=== PATIENT | female | born 1995 | race Caucasian/White ===

== ENCOUNTER → 2016-10-18 | Day surgery (SDC) | payer BC ==
--- NOTE | 2016-10-17 01:09 | Pre-op HX & Phy Repo 2 SIG ---
DATE OF ADMISSION: 10/18/2016 HISTORY OF PRESENT ILLNESS: This is a 21-year-old white female 0 para 0 with a chief complaint of persistent low abdominal pain. Pain has been getting worse during the menstrual periods, and cramps are so severe that the patient used to take constantly pain medication starting from nonsteroidals going down through codeine #3, Percocet. The pain is getting worse through several years. Sexual life practically impossible due to severe cramps and pain during the intercourse. She also complains of severe vaginal bleeding on menstrual period. Her menstrual period is regular, every 28 to 30 days for five to six days. Her Pap smear is Class 1. She denies pelvic inflammatory disease. She denies sexually transmitted diseases. PAST MEDICAL HISTORY: She denies medical problems. She denies heart disease, lung disease, liver disease. Hospitalizations, none. SOCIAL HISTORY: Tobacco: Does not smoke. Alcohol: Does not drink. 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 ALLERGIES: None. REVIEW OF SYSTEMS: Otherwise noncontributory. PHYSICAL EXAMINATION: GENERAL: The patient is well developed and well nourished white female, 21 years old. VITAL SIGNS: Stable. SKIN: No lesions. Normal color. HEENT: Head, normocephalic and atraumatic. Eyes, pupils are reactive to light and accommodation. Ears, tympanic membranes intact. Mouth, clean. Good hygiene. NECK: Supple with no thyromegaly without lymphadenopathy. BREASTS: No masses. Nipples without discharge. LUNGS: Clear to percussion and auscultation. HEART: Rate and rhythm regular. No murmur. ABDOMEN: Soft and nontender. Costovertebral angles nontender. Bowel sounds clear, normal. PELVIC: Bartholin urethral [place] glands within normal limits. Vagina, no lesions. Cervix closed. Uterus normal size, shape, position. Adnexa, no masses. LABORATORY AND DIAGNOSTIC DATA: Ultrasound on 09/12/2016 revealed presence of right ovarian cyst of 2.4 cm, possible follicles. Otherwise, no abnormal findings. WBC 5.8, RBC 4.2, hemoglobin 12.9, hematocrit 37.7, blood type is A positive. Test for is negative. Her INR is 0.98, PTT 28 and PT 10.6. Blood sugar and electrolytes are within normal limits. IMPRESSION: 1. Severe dysmenorrhea. 2. Severe dyspareunia. 3. Lower abdominal pain. 4. Possible endometriosis. PLAN: Hysteroscopy, fluoroscopy. Edna Shin M.D. DR: FRANCESCO JOB#: [id number] CC:
[~2016-10-18] VITALS: Ht 170.2 cm; Wt 71.2 kg
[2016-10-18] VITALS (16 sets, daily range): BP systolic 99–133; BP diastolic 51–84
[~2016-10-18] MED LIST: Dexamethasone 4mg/ml vial ONE; Glycopyrrolate 0.2mg/ml 1ml Vial ONE; Ketorolac 30mg Inj ONE; Ketorolac 60mg Inj IM ONE; LOESTRIN1 EAC1 PO; LORazepam Inj 2mg/ml 1ml IV PRN; LR 1000ml 1,000 ML IVLG SCH; LR 1000ml ONE; Metoclopramide 10mg/2ml Inj ONE; Midazolam 2mg/2ml Inj ONE; NS 275ml ONE; NS 55ml IV ONE; NS Irrig 1000ml IRRIG ONE; Neostigmine 1mg/ml 10ml Inj ONE; PETADOLEX50 MG PO; PROZAC40 MG ORAL; Propofol 10mg/ml 20ml IV ONE; ProvayBlue 5mg/ml 10ml amp INJ ONE; Ropivacaine 5mg/ml Vial 20ml INJ ONE; Sterile Water Irrig 1000ml IRRIG ONE; VITAMIN B-2100 MG PO; Zemuron 50mg/5ml Inj IV ONE; cefOXitin 2gm Inj ONE; cefOXitin Sod 2 GM in D5W 110 ML IVPB ONE; fentaNYL 100 mcg/2 mL IV ONE
--- NOTE | 2016-10-18 07:43 | Pre-Procedure Note/Attestation ---
Pre-Procedure Note/Attestation Complete Prior to Procedure Planned Procedure: not applicable Procedure Narrative: Video laser laparoscopy, video hysteroscopy Indications for Procedure Pre-Operative Diagnosis: Severe pelvic pain, dyspareunia Attestation I attest that I discussed the nature of the procedure; its benefits; risks and complications; and alternatives (and the risks and benefits of such alternatives ), prior to the procedure, with the patient (or the patient's legal sales representative education courses). I attest that, if there was a reasonable possibility of needing a blood transfusion, the patient (or the patient's legal sales representative education courses) was given the [facility] standardized written summary, pursuant to the Luis Antonio Adriana Blood Safety Act ([place] Health and Safety Code # 1645, as amended). I attest that I re-evaluated the patient just prior to the surgery and that there has been no change in the patient's H&P, except as documented below:NONE DEMARCUS QUEEN Oct 18, 2016 07:43
--- NOTE | 2016-10-18 08:14 | Immediate Post-Op Evaluation ---
Immediate Post-Op Evalulation Immediate Post-Op Evalulation Procedure: pelviscopy Date of Evaluation: Oct 18, 2016 Time of Evaluation: 09:35 Blood Products: 1100 ml LR Estimated Blood Loss: 5-10 ml Urinary Output: 250 ml Blood Pressure Systolic: 130 Blood Pressure Diastolic: 82 Pulse Rate: 91 Respiratory Rate: 16 O2 Sat by Pulse Oximetry: 100 Temperature (Fahrenheit): 97.1 Pain Score (1-10): 3 Nausea: No Vomiting: No Complications none Patient Status: reacts, patent, none Hydration Status: adequate Drug: Cefoxitin 1 G Given Within 1 Hr of Incision: Yes Time Given: 07:49 NANCI LAWTON M.D. Oct 18, 2016 08:14
--- NOTE | 2016-10-18 08:17 | 48 Hour Post Anesthesia Eval ---
Post Anesthesia Evaluation Procedure: pelviscopy Date of Evaluation: Oct 18, 2016 Time of Evaluation: 10:30 Blood Pressure Systolic: 129 0: 74 Pulse Rate: 82 Respiratory Rate: 14 Temperature (Fahrenheit): 97.1 O2 Sat by Pulse Oximetry: 100 Airway: patent Nausea: No Vomiting: No Pain Intensity: 3 Hydration Status: adequate Cardiopulmonary Status: Stable Mental Status/LOC: other - drowsy, responds to verbal Post-Anesthesia Complications: none Follow-up care needed: patient intructions given NANCI LAWTON M.D. Oct 18, 2016 08:17
--- NOTE | 2016-10-18 08:22 | Anethesia Preoperative Eval ---
Anesthesia Pre-op PMH/ROS General Date of Evaluation: Oct 18, 2016 Time of Evaluation: 07:20 Anesthesiologist: Paddy ASA Score: ASA 1 Mallampati Score Class I : Soft palate, uvula, fauces, pillars visible Class II: Soft palate, uvula, fauces visible Class III: Soft palate, base of uvula visible Class IV: Only hard plate visible Mallampati Classification: Class I Surgeon: María Shin Diagnosis: Endometriosis Surgical Procedure: Pelviscopy, Hysteroscopy, D & C, CO2 laser of endometriosis Anesthesia History: PONV - Pt has been told she has very high tolerance for anesthesia Family History: no anesthesia problems Allergies: Coded Allergies: No Known Allergies (Unverified , 10/16/16) Medications: see eMAR Past Medical History Neurologic/Psychiatric: Reports: depression/anxiety PMH Narrative: healthy PSxH Narrative: tonsillectomy, BAM Anesthesia Pre-op Phys. Exam Physician Exam Last Vital Signs Date Time Temp Pulse Resp B/P Pulse Ox O2 Delivery O2 Flow Rate FiO2 10/18/16 06:55 98.1 79 20 132/78 100 Room Air Constitutional: NAD Neurologic: CN 2-12 intact Cardiovascular: RRR Respiratory: CTA Gastrointestinal: other - deferred Airway Exam Mallampati Score: Class I MO: full ROM: full Anesthesia Pre-op A/P Labs Urine Test Test 10/18/16 06:40 Urine HCG, Qualitative Negative Serum Test negative Risk Assessment & Plan Assessment: ASA I Plan: GETA Pre-Antibiotics Drug: Cefoxitin 1 G Given Within 1 Hr of Incision: Yes Time Given: 07:49 NANCI LAWTON M.D. Oct 18, 2016 08:22
--- NOTE | 2016-10-18 09:48 | Brief Operative Note ---
Immediate Post Operative Note Operative Note Chief Complaint: Pelvic Pain Pre-op Diagnosis: Severe pelvic pain, dyspareunia Procedure: Video Hysteroscopy, Video Laser Pelviscopy with enterolysis, with vaporization of endometriosis, with chromotubation Post-op Diagnosis: Pelvic endometriosis, bowel adhesions, appendiceal adhesions Post-op Diagnosis: same as pre-op plus - endometriosis, bowel adhesions, pelvic adhesions Surgeon: Demarcus Queen MD Plating Tank Operator: Ashley Titus Anesthesiologist: Paddy BALDERRAMA Anesthesia: general Specimen: none Complications: none Condition: stable Fluids: NS Estimated Blood Loss: minimal Drains: none Implant(s) used?: No DEMARCUS QUEEN Oct 18, 2016 09:48
[2016-10-18] MEDS: Hydromorphone 0.5mg/0.5ml inj IVP PRN ×3 (09:57→10:33)
--- NOTE | 2016-10-18 19:19 | Operative Note - Dictated ---
SURGEON: Jeet Shin M.D. PRINT FINISHING WORKER: Ashley Titus M.D. PREOPERATIVE DIAGNOSES: Severe pelvic pain, dyspareunia, and dysmenorrhea. PROCEDURE: Video hysteroscopy, video laser pelviscopy with enterolysis, video laser pelviscopy with vaporization of endometriosis and chromotubation. POSTOPERATIVE DIAGNOSIS: Severe pelvic pain, dyspareunia, dysmenorrhea plus pelvic endometriosis, bowel adhesions, and appendiceal adhesions. ANESTHESIA: General endotracheal. ANESTHESIOLOGIST: Joan Thomason M.D. ESTIMATED BLOOD LOSS: Minimal. PROCEDURE IN DETAIL: After all the appropriate consents were signed, the patient was brought to the operating room and placed on table supine position. General endotracheal anesthesia was induced without complication. The patient was then placed in the dorsal lithotomy position. Perineum, vagina, and abdomen prepped and draped in the usual fashion for the procedure. The patient was examined under anesthesia. The uterus appeared to be anterior flexed with no pelvic masses palpated and the uterus was mobile. The procedure then continued with the hysteroscopy where the cervix was dilated and video hysteroscope was introduced. Hysteroscopy revealed a totally normal uterine cavity. Both tubal ostia were visualized and photographed. The procedure then continued with placement of uterine manipulator. The abdominal portion of the procedure then began where an umbilical incision was made. Veress needle was introduced and the abdomen was insufflated to 15 mmHg. A 11 mm trocar was placed in the umbilicus and the two 5 mm trocars were placed in the lower abdomen on the left and midline of the patient. The procedure continued with visualizing of the pelvis. There appeared to be three distinct endometriosis lesions, one on the left pelvic sidewall just above the pelvic brim and the other two were in the posterior cul-de-sac overlying the colon area. The procedure then continued with evaluation of both the ovaries, they were within normal limits and no endometriosis or cystic areas were identified. The area of the appendix was also visualized and there appeared to be adhesions along the abdominal sidewall to the appendix. The appendix was actually kinked in one area due to the adhesions. Also on the left side, the loops of bowel were seen adhesed to the pelvic sidewall. At this time, the procedure continued with placing vasopressin solution in the area of the left pelvic sidewall lesion. The area was hydrodissected and the lesion was fully vaporized. The other two lesions in the posterior cul-de-sac were also hydrodissected with vasopressin and thoroughly vaporized ascertaining that no areas of endometriosis were left over. Clean tissue was visible underneath the endometriosis lesions. At this time, the left pelvic sidewall was also now visualized with enterolysis undertaken using CO2 laser in traction countertraction technique. Once this was completed, the procedure continued with thorough enterolysis of the appendiceal adhesions which extended to the cecum. These adhesions were lysed with appendix straightening out and the cecum adhesions also lysed and the cecum dropping away from the pelvic sidewall. At this time, the pelvis was once again visualized. There did not appear to be any other lesions of endometriosis or adhesions. Upper abdomen was also visualized and was found to be within normal limits. No adhesions to the liver. At this time, the instruments were removed one after the another under direct visualization with the laparoscope. Puncture sites were fully hemostatic. The primary trocar was removed last with the laparoscope removed after primary trocar. The puncture site was fully hemostatic. At this time, the incisions were closed using 0 Vicryl suture at the fascial layer and 4-0 Monocryl suture at the skin layer. Incisions were covered with Steri-Strips and benzoin. The patient was placed in the supine position, awakened from general anesthesia, and brought to the recovery room in excellent condition. She tolerated the procedure very well. Jeet Shin M.D. DR: THOMAS JOB#: [id number] CC:
== END | disposition home or self-care (01) ==
LOC: SUR 06:20
DX: N80.3 Endometriosis of pelvic peritoneum (principal); K66.0 Peritoneal adhesions (postprocedural) (postinfection); K38.8 Other specified diseases of appendix; N94.6 Dysmenorrhea, unspecified; N94.10 Unspecified dyspareunia
CPT/HCPCS: 58555; 58662; 81025; J0694; J1100; J1170; J1885; J2250; J2405; J2704; J2710; J2765; J2795; J3010; J7050; J7120; Q9968; 94003; 94150

== ENCOUNTER 2017-11-20 06:26 | Observation (INO) | payer BC ==
--- NOTE | 2017-11-13 21:45 | History and Physical Report ---
DATE OF ADMISSION: 11/20/2017 HISTORY OF PRESENT ILLNESS: This is a 22-year-old female, 0, para 0, who presented to our office with a chief complaint of severe menstrual cramps, lower abdominal pain, and dysmenorrhea. Due to such problem, the patient was debilitated and she underwent laparoscopy one year ago. At that time, she was diagnosed with endometriosis was confirmed and she was placed on control pills, low estrogen for a year. However, now problem re-appears again and necessitate taking pain medicine regular nonsteroidal anti-inflammatory does not help. She is sexually active and she is feeling relative discomfort on intercourse. She denies pelvic inflammatory disease. She denies sexually transmitted diseases. Pap smear is normal. PAST MEDICAL HISTORY: She denies medical problems. She denies heart disease, lung disease, or liver disease. SURGERIES: Laparoscopy in 2017 and breast implants in 2016. ALLERGIES: None. SOCIAL HISTORY: Tobacco, does not smoke. Alcohol, does not drink. REVIEW OF SYSTEMS: Noncontributory. PHYSICAL EXAMINATION: GENERAL: Reveals well-developed, well-nourished, white female, in no acute distress. VITAL SIGNS: Stable. SKIN: No lesions. Normal color. HEENT: Normocephalic and atraumatic. Eyes, pupils are reactive to light and accommodation. Ears, tympanic membranes intact. Nose, clear. Mouth, good hygiene. enlarged. NECK: Supple dwithout thyromegaly. No lymphadenopathy. BREASTS: No masses. Nipples without discharge. Implants present. LUNGS: Clear to percussion and auscultation. HEART: Rate and rhythm regular. S1 and S2. ABDOMEN: Soft and nontender. Bowel sounds present. Costovertebral angle nontender. EXTREMITIES: No edema. PELVIC: Limited to the kidney and bladder within normal limits. Normal vagina. No lesions. Cervix closed. Uterus, normal size. Adnexa, tenderness bilaterally. No masses appreciated. IMPRESSION: Dysmenorrhea, dyspareunia, persistent pelvic pain, and endometriosis. PLAN: Laparoscopy and possible D and C hysteroscopy.. Edna Shin M.D. DR: YAMILET JOB#: [id number] CC:
[~2017-11-20] VITALS: Ht 170.2 cm; Wt 71.2 kg
[2017-11-20] VITALS (18 sets, daily range): BP systolic 105–130; BP diastolic 52–77
[~2017-11-20 06:26] MED LIST changes: -Dexamethasone 4mg/ml vial ONE; -Glycopyrrolate 0.2mg/ml 1ml Vial ONE; -Ketorolac 30mg Inj ONE; -Ketorolac 60mg Inj IM ONE; -LORazepam Inj 2mg/ml 1ml IV PRN; -LR 1000ml 1,000 ML IVLG SCH; -LR 1000ml ONE; -Metoclopramide 10mg/2ml Inj ONE; -Midazolam 2mg/2ml Inj ONE; -NS 275ml ONE; -NS 55ml IV ONE; -NS Irrig 1000ml IRRIG ONE; -Neostigmine 1mg/ml 10ml Inj ONE; -Propofol 10mg/ml 20ml IV ONE; -ProvayBlue 5mg/ml 10ml amp INJ ONE; -Ropivacaine 5mg/ml Vial 20ml INJ ONE; -Sterile Water Irrig 1000ml IRRIG ONE; -Zemuron 50mg/5ml Inj IV ONE; -cefOXitin 2gm Inj ONE; -cefOXitin Sod 2 GM in D5W 110 ML IVPB ONE; -fentaNYL 100 mcg/2 mL IV ONE
[2017-11-20] MEDS ORDERED: VENLAFAXINE HCL25 MG ORAL (06:58)
[2017-11-20] MEDS ORDERED: Ropivacaine 5mg/ml Vial 30ml INJ ONE (06:59)
[2017-11-20] MEDS ORDERED: cefOXitin 2gm Inj IVP ONE (07:00)
[2017-11-20] MEDS ORDERED: cefOXitin 2gm in D5W 110ml IVPB ONE (07:00)
--- NOTE | 2017-11-20 07:21 | Anethesia Preoperative Eval ---
Anesthesia Pre-op PMH/ROS General Date of Evaluation: Nov 20, 2017 Anesthesiologist: Adria ASA Score: ASA 2 Mallampati Score Class I : Soft palate, uvula, fauces, pillars visible Class II: Soft palate, uvula, fauces visible Class III: Soft palate, base of uvula visible Class IV: Only hard plate visible Mallampati Classification: Class I Surgeon: Aleida Diagnosis: Enometriosis Surgical Procedure: Pelviscopy with laser, D&C hysteroscopy Anesthesia History: none Family History: no anesthesia problems Allergies: Coded Allergies: No Known Allergies (Unverified , 10/16/16) Medications: see eMAR Past Medical History Cardiovascular: Denies: HTN, CAD, VA, valve dz, arrhythmia, other Pulmonary: Denies: asthma, COPD, RAFIQ, other Gastrointestinal/Genitourinary: Reports: other - endometriosis; Denies: GERD, CRI, ESRD Neurologic/Psychiatric: Reports: depression/anxiety; Denies: dementia, CVA, TIA, other Endocrine: Denies: DM, hypothyroidism, steroids, other HEENT: Denies: cataract (L), cataract (R), glaucoma, [place]EL[place] (L), NELSON [place] (R), other Hematology/Immune: Denies: anemia, DVT, bleeding disorder, other Musculoskeletal/Integumentary: Denies: OA, RA, DJD, DDD, edema, other PSxH Narrative: T&A, breast aug Anesthesia Pre-op Phys. Exam Physician Exam Last Vital Signs Date Time Temp Pulse Resp B/P (MAP) Pulse Ox O2 Delivery O2 Flow Rate FiO2 11/20/17 06:56 98.4 88 20 118/77 100 Room Air 98.4 Constitutional: NAD Cardiovascular: RRR Respiratory: CTA Airway Exam Mallampati Score: Class I MO: full ROM: full Teeth: intact Anesthesia Pre-op A/P Labs see chart Urine Test Test 11/20/17 06:35 Urine HCG, Qualitative Negative (NEGATIVE) Studies Pre-op Studies: EKG - sr Risk Assessment & Plan Assessment: ASA II Plan: GA Status Change Before Surgery: No Pre-Antibiotics Drug: CEfoxitin 2g Given Within 1 Hr of Incision: Yes JESUS GARDNER M.D. Nov 20, 2017 07:21
[2017-11-20] MEDS ORDERED: cefOXitin 2gm Inj ONE ×2 (07:23→14:51)
--- NOTE | 2017-11-20 07:44 | Pre-Procedure Note/Attestation ---
Pre-Procedure Note/Attestation Complete Prior to Procedure Planned Procedure: not applicable Procedure Narrative: Video Laser Pelviscopy, Appendectomy, Video hysteroscopy, D&C Indications for Procedure Pre-Operative Diagnosis: Chronic Pelvic Pain Attestation I attest that I discussed the nature of the procedure; its benefits; risks and complications; and alternatives (and the risks and benefits of such alternatives ), prior to the procedure, with the patient (or the patient's legal fuels sales representative). I attest that, if there was a reasonable possibility of needing a blood transfusion, the patient (or the patient's legal fuels sales representative) was given the [place] [facility] standardized written summary, pursuant to the Luis Antonio Adriana Blood Safety Act ([place] Health and Safety Code # 1645, as amended). I attest that I re-evaluated the patient just prior to the surgery and that there has been no change in the patient's H&P, except as documented below:NONE DEMARCUS QUEEN Nov 20, 2017 07:44
[2017-11-20] MEDS ORDERED: ProvayBlue 5mg/ml 10ml amp INJ ONE (07:45)
[2017-11-20] MEDS ORDERED: LR 1000ml 1,000 ML IVLG SCH (08:10)
--- NOTE | 2017-11-20 08:13 | Immediate Post-Op Evaluation ---
Immediate Post-Op Evalulation Immediate Post-Op Evalulation Procedure: PElviscopy with CO2 laser, D&C hysteroscopy Date of Evaluation: Nov 20, 2017 Time of Evaluation: 09:42 IV Fluids: 1.4L Blood Products: 0 Estimated Blood Loss: 5 Urinary Output: 50 Blood Pressure Systolic: 105 Blood Pressure Diastolic: 52 Pulse Rate: 96 Respiratory Rate: 16 O2 Sat by Pulse Oximetry: 98 Temperature (Fahrenheit): 97.5 Pain Score (1-10): 0 Nausea: No Vomiting: No Complications 0 Patient Status: awake, reacts, patent, extubated, none Hydration Status: adequate Drug: Cefoxiti 2g Given Within 1 Hr of Incision: Yes Time Given: 07:45 JESUS GARDNER M.D. Nov 20, 2017 08:13
--- NOTE | 2017-11-20 08:14 | 48 Hour Post Anesthesia Eval ---
Post Anesthesia Evaluation Procedure: PElviscopy with CO2 laser, D&C hysteroscopy Date of Evaluation: Nov 20, 2017 Airway: patent Nausea: No Vomiting: No Hydration Status: adequate Cardiopulmonary Status: at baseline Mental Status/LOC: patient returned to baseline Post-Anesthesia Complications: 0 Follow-up care needed: ready to discharge JESUS GARDNER M.D. Nov 20, 2017 08:14
[2017-11-20] MEDS ORDERED: Midazolam 2mg/2ml Inj IVP PRN (08:15)
[2017-11-20] MEDS ORDERED: Ketorolac 30mg Inj IV PRN (08:15)
[2017-11-20] MEDS ORDERED: DiphenhydrAMINE 50mg/ml Inj IVP PRN (08:15)
[2017-11-20] MEDS ORDERED: fentaNYL 100 mcg/2 mL IV PRN (08:15)
[2017-11-20] MEDS ORDERED: Hydromorphone 0.5mg/0.5ml inj IVP PRN (08:15)
[2017-11-20] MEDS ORDERED: LORazepam Inj 2mg/ml 1ml IV PRN (08:15)
--- NOTE | 2017-11-20 09:31 | Brief Operative Note ---
Immediate Post Operative Note Operative Note Chief Complaint: Pelvic pain Pre-op Diagnosis: Pelvic Pain Procedure: Video laser pelviscopy with vaporization of endometriosis, and appendectomy Post-op Diagnosis: Pelvic pain Post-op Diagnosis: same as pre-op Findings: consistent w/pre-op dx studies Surgeon: Jeet Shin MD Frame Expander: Silvia Beltre MD Anesthesiologist: Chitra Vela Anesthesia: general Specimen: yes - Appendix Complications: none Condition: stable Fluids: 1300cc crystalloid Estimated Blood Loss: volume - 5cc Drains: none - UOP 50cc intra-op, solis removed at end of case Implant(s) used?: No Silvia Beltre M.D. Nov 20, 2017 09:31
[2017-11-20 11:14] LABS: HEMATOCRIT 37.6 % (37.0-47.0); HEMOGLOBIN 12.9 G/DL (12.0-16.0); MEAN CORPUSCULAR VOLUME 90 FL (80-99); PLATELET COUNT 235 K/UL (150-450); RED BLOOD COUNT 4.19 M/UL (4.20-5.40); RED CELL DISTRIBUTION WIDTH 10.7 % (11.6-14.8)
[2017-11-20 13:05] LABS: ANION GAP 9 mmol/L (5-15); BLOOD UREA NITROGEN 8 mg/dL (7-18); CALCIUM 8.3 MG/DL (8.5-10.1); CARBON DIOXIDE 25 MMOL/L (21-32); CHLORIDE 106 MMOL/L (98-107); CREATININE 0.9 MG/DL (0.55-1.30); POTASSIUM 4.1 MMOL/L (3.5-5.1); SODIUM 140 MMOL/L (136-145)
[2017-11-20 13:10] LABS: ALANINE AMINOTRANSFERASE 14 U/L (12-78); ALBUMIN 3.5 G/DL (3.4-5.0); ALKALINE PHOSPHATASE 52 U/L (46-116); ASPARTATE AMINO TRANSFERASE 15 U/L (15-37); BILIRUBIN,TOTAL 0.4 MG/DL (0.2-1.0); PHOSPHORUS 3.5 MG/DL (2.5-4.9)
[2017-11-20] MEDS ORDERED: Midazolam 2mg/2ml Inj ONE (14:51)
[2017-11-20] MEDS ORDERED: fentaNYL 100 mcg/2 mL IV ONE (14:51)
[2017-11-20] MEDS ORDERED: Ketorolac 30mg Inj ONE (14:51)
[2017-11-20] MEDS ORDERED: Lidocaine 1% MPF 10mg/ml 5ml ONE (14:51)
[2017-11-20] MEDS ORDERED: LR 1000ml ONE (14:51)
[2017-11-20] MEDS ORDERED: Dexamethasone 4mg/ml vial ONE (14:51)
[2017-11-20] MEDS ORDERED: Zemuron 50mg/5ml Inj IV ONE (14:51)
[2017-11-20] MEDS ORDERED: Propofol 200mg/20ml IV ONE (14:51)
[2017-11-20] MEDS ORDERED: Norco 5mg/325mg tab ORAL PRN (16:00)
--- NOTE | 2017-11-20 16:45 | Cardiology Progress Note ---
Assessment/Plan Assessment/Plan post op sinus tachy likely affect of anesthesia and pain possibly volume continue hydration will repeat cbc to make sure not bleeding venous duplex as well no hypoxemia not pleuritic cp has been u to br already with min dizziness no need fore bb at this time appear tachy has already improved since earleir now only 120 compared to 150's earlier will follow thank you [id number] Objective Last 24 Hour Vital Signs Date Time Temp Pulse Resp B/P (MAP) Pulse Ox O2 Delivery O2 Flow Rate FiO2 11/20/17 14:58 99.1 118 18 117/65 97 Room Air 99.1 11/20/17 14:00 115 18 115/59 99 Room Air 11/20/17 13:30 108 17 126/62 99 Room Air 11/20/17 13:00 99.1 119 17 130/71 96 Room Air 99.1 11/20/17 12:30 98.7 130 18 112/55 96 Room Air 98.7 11/20/17 11:55 98.7 134 19 122/62 97 Room Air 98.7 11/20/17 11:44 99.2 132 18 123/64 97 Room Air 99.2 11/20/17 11:34 137 18 115/65 97 Room Air 11/20/17 11:00 133 18 129/66 97 Room Air 11/20/17 10:45 131 18 117/69 97 Room Air 11/20/17 10:26 128 18 124/72 97 Room Air 11/20/17 10:17 130 18 125/76 100 Simple Mask 8.0 11/20/17 10:00 94 18 106/60 100 Simple Mask 8.0 11/20/17 09:47 96 18 106/56 100 Simple Mask 8.0 11/20/17 09:43 207.5 96 16 98 11/20/17 09:42 92 18 105/52 98 Simple Mask 8.0 11/20/17 09:37 97.5 92 18 105/52 98 Simple Mask 8.0 97.5 11/20/17 06:56 98.4 88 20 118/77 100 Room Air 98.4 Laboratory Tests Test 11/20/17 06:35 11/20/17 11:00 Urine HCG, Qualitative Negative (NEGATIVE) White Blood Count 12.0 K/UL (4.8-10.8) H Red Blood Count 4.19 M/UL (4.20-5.40) L Hemoglobin 12.9 G/DL (12.0-16.0) Hematocrit 37.6 % (37.0-47.0) Mean Corpuscular Volume 90 FL (80-99) Mean Corpuscular Hemoglobin 30.6 PG (27.0-31.0) Mean Corpuscular Hemoglobin Concent 34.2 G/DL (32.0-36.0) Red Cell Distribution Width 10.7 % (11.6-14.8) L Platelet Count 235 K/UL (150-450) Mean Platelet Volume 8.5 FL (6.5-10.1) Neutrophils (%) (Auto) % (45.0-75.0) Lymphocytes (%) (Auto) % (20.0-45.0) Monocytes (%) (Auto) % (1.0-10.0) Eosinophils (%) (Auto) % (0.0-3.0) Basophils (%) (Auto) % (0.0-2.0) Differential Total Cells Counted 100 Neutrophils % (Manual) 91 % (45-75) H Lymphocytes % (Manual) 6 % (20-45) L Monocytes % (Manual) 3 % (1-10) Eosinophils % (Manual) 0 % (0-3) Basophils % (Manual) 0 % (0-2) Band Neutrophils 0 % (0-8) Platelet Estimate Adequate Platelet Morphology Normal Sodium Level 140 MMOL/L (136-145) Potassium Level 4.1 MMOL/L (3.5-5.1) Chloride Level 106 MMOL/L (98-107) Carbon Dioxide Level 25 MMOL/L (21-32) Anion Gap 9 mmol/L (5-15) Blood Urea Nitrogen 8 mg/dL (7-18) Creatinine 0.9 MG/DL (0.55-1.30) Estimat Glomerular Filtration Rate > 60 mL/min (>60) Glucose Level 107 MG/DL (74-106) H Calcium Level 8.3 MG/DL (8.5-10.1) L Phosphorus Level 3.5 MG/DL (2.5-4.9) Total Bilirubin 0.4 MG/DL (0.2-1.0) Aspartate Amino Transf (AST/SGOT) 15 U/L (15-37) Alanine Aminotransferase (ALT/SGPT) 14 U/L (12-78) Alkaline Phosphatase 52 U/L (46-116) Total Protein 6.9 G/DL (6.4-8.2) Albumin 3.5 G/DL (3.4-5.0) Globulin 3.4 g/dL Albumin/Globulin Ratio 1.0 (1.0-2.7) JOHNATHON HUANG Nov 20, 2017 16:45
[2017-11-20] MEDS: D5 1/2NS 1,000 ML IV SCH (17:28)
[2017-11-20 18:19] LABS: BASOPHILS % (AUTO) 0.2 % (0.0-2.0); HEMATOCRIT 35.4 % (37.0-47.0); HEMOGLOBIN 12.2 G/DL (12.0-16.0); LYMPHOCYTES % (AUTO) 5.2 % (20.0-45.0); MEAN CORPUSCULAR VOLUME 89 FL (80-99); MONOCYTES % (AUTO) 1.2 % (1.0-10.0); NEUTROPHILS % (AUTO) 93.5 % (45.0-75.0); PLATELET COUNT 238 K/UL (150-450); RED BLOOD COUNT 3.98 M/UL (4.20-5.40); RED CELL DISTRIBUTION WIDTH 10.6 % (11.6-14.8); WHITE BLOOD COUNT 8.1 K/UL (4.8-10.8)
[2017-11-20 18:41] LABS: ANION GAP 5 mmol/L (5-15); BLOOD UREA NITROGEN 8 mg/dL (7-18); CALCIUM 8.2 MG/DL (8.5-10.1); CARBON DIOXIDE 26 MMOL/L (21-32); CHLORIDE 105 MMOL/L (98-107); CREATININE 0.8 MG/DL (0.55-1.30); POTASSIUM 4.1 MMOL/L (3.5-5.1); SODIUM 136 MMOL/L (136-145)
[2017-11-20 18:45] LABS: ALANINE AMINOTRANSFERASE 14 U/L (12-78); ALBUMIN 3.2 G/DL (3.4-5.0); ALBUMIN/GLOBULIN RATIO 0.9 (1.0-2.7); ALKALINE PHOSPHATASE 50 U/L (46-116); ASPARTATE AMINO TRANSFERASE 12 U/L (15-37); BILIRUBIN,TOTAL 0.4 MG/DL (0.2-1.0)
[2017-11-20] MEDS: HYDROcodone/Acetamin 10/325 tab ORAL PRN (20:11)
[2017-11-21] VITALS: BP 119/66
[2017-11-21] MEDS: HYDROcodone/Acetamin 10/325 tab ORAL PRN ×4 (01:36→18:23)
[2017-11-21] MEDS: D5 1/2NS 1,000 ML IV SCH ×2 (01:37→15:06)
[2017-11-21 04:00] VITALS: BP 113/54
[2017-11-21 08:00] VITALS: BP 102/57
--- NOTE | 2017-11-21 08:16 | Consultation ---
DATE OF CONSULTATION: 11/20/2017 CARDIOLOGY CONSULTATION CONSULTING PHYSICIAN: Brock Stinson M.D. REFERRING PHYSICIAN: Jeet Shin M.D. REASON FOR EVALUATION: Tachycardia. HISTORY OF PRESENT ILLNESS: This is a 22-year-old female, who underwent gynecological surgery today laparoscopic and postoperatively was noted to be tachycardic and heart rates in the 140s. The patient is now seen in the telemetry unit. She does not have any chest pain or shortness of breath at this time. There is no PND, no orthopnea, no palpitations. No dizziness or lightheadedness. She has walked to the bathroom without any problems. She does not have any leg pain or leg swelling, although she does feel that after anesthesia that her legs feel heavy. She had one particular area of pain in the left medial sternal border area that is tender to palpation, otherwise, no difficulty with breathing. No pain with taking a deep breath or persistent pain. PAST MEDICAL HISTORY: Positive for history of endometriosis. Denies any diabetes or high blood pressure. No heart attack or cancer, stroke, hepatitis, tuberculosis, asthma, or emphysema. No ulcers. No kidney problems, liver problems, thyroid problems, anemia, or arthritis. She does have a history of syncopal episodes in high school. She had evaluation by irrigator gravity flow. Apparently, workup was negative except for some kind of a minor valvular issue according to the patient. PAST SURGICAL HISTORY: The patient's prior surgical history includes endometrial surgery previously as well as breast augmentation. ALLERGIES: She is not allergic to any medication. SOCIAL HISTORY: She does not smoke. Does not drink alcoholic beverages. No drug use. REVIEW OF SYSTEMS: GASTROINTESTINAL: She had some nausea, but not any more. No vomiting. No diarrhea. No bloody or black stools. GENITOURINARY: She did have some discomfort on urination previously, but that is present now. PULMONARY: Denies any coughing or wheezing. CONSTITUTIONAL: No fever, chills, or night sweats. NEUROLOGICAL: She had an episode of numbness in her right arm few days ago that resolved after a few minutes and she felt that it was possibly from the neck and this occurred while driving a car. No recurrence of the issue. PHYSICAL EXAMINATION: GENERAL: Shows her to be a young female, in no respiratory distress whatsoever. She looks quite comfortable. NECK: Supple. No jugular venous distention. No abdominojugular reflux noted. LUNGS: Clear to auscultation and percussion. CARDIAC: S1 is normal. S2 is normal. Regular rhythm. Tachycardic. ABDOMEN: Soft. No guarding. No rigidity. Surgical dressings are in place from laparoscopic surgery in the lower abdomen and slightly more cephalad. EXTREMITIES: There is no edema. No pain. No swelling of the lower extremities whatsoever. LABORATORY AND DIAGNOSTIC DATA: Her laboratory values, preoperative laboratories were reviewed. INR was normal, PTT was normal. She had a white count of 4.9, hemoglobin 13.1, and platelet count of 290 prior to the surgery with sodium of 142, potassium 4.9, chloride of 104, bicarbonate 27, and glucose of 83, and she had some abnormal checks with Dr. Shin as well. test was negative on the 11/14/2017. EKG was just ordered to perform. There was sinus tachycardia at a rate of 120. There is no ST-T wave abnormality whatsoever. Her telemetry strips were reviewed that were available. She has had tachycardia as much as 150, subsequently 142, now 120. Intraoperative data was reviewed. The patient's heart rate was in the 60s to 70 range intraoperatively with blood pressures in the high 90s to low 120s intraoperatively. There was reportedly no significant blood loss intraoperatively. ASSESSMENT AND PLAN: 1. Sinus tachycardia, likely related to pain and/or volume or anemia. Sinus tachycardia postoperatively. 2. Status post gynecological surgery, of endometriosis and appendectomy. Dr. Shin, this patient was seen in cardiac consultation. She is completely asymptomatic. There is no evidence of edema. No chest pain on respiration. There is a normal oxygen saturation and normal blood pressure at the present time. Despite the tachycardia, she has actually walked to the bathroom without any significant issues. Postoperative tachycardia may be related to pain or volume status, and of course, possibility of anemia. Other etiologies are entertained, however, are very unlikely. I will order a venous duplex study. I have ordered a stat repeat CBC and chemistry panel. She is continuing with intravenous fluids. She really is not having any fevers. She does have some postoperative pain, which may account for some of the tachycardia. Her tachycardia has improved with heart rates initially on telemetry strips as excess of 150 and now decreased down to 120 all consistent with sinus tachycardia. She does not have any significant cardiac morbidity. I will not pursue administering any beta-blockers at this time. With continued hydration and pain control and relaxation, hopefully, she will improve. Thyroid-stimulating hormone will be ordered as well as a set of orthostatic vitals for tomorrow morning. An echocardiogram may be ordered if her tachycardia becomes persistent by tomorrow. She has no signs or symptoms or hemodynamic embarrassment at this time and saturations are listed between 97% to 99% on room air at this time. Brock Stinson M.D. DR: OCHAO JOB#: [id number] CC:
[2017-11-21 09:54] LABS: BASOPHILS % (AUTO) 0.2 % (0.0-2.0); HEMATOCRIT 34.2 % (37.0-47.0); HEMOGLOBIN 11.7 G/DL (12.0-16.0); LYMPHOCYTES % (AUTO) 12.1 % (20.0-45.0); MEAN CORPUSCULAR VOLUME 91 FL (80-99); MONOCYTES % (AUTO) 8.6 % (1.0-10.0); NEUTROPHILS % (AUTO) 79.2 % (45.0-75.0); PLATELET COUNT 230 K/UL (150-450); RED BLOOD COUNT 3.77 M/UL (4.20-5.40); WHITE BLOOD COUNT 10.6 K/UL (4.8-10.8)
[2017-11-21 10:17] LABS: ALANINE AMINOTRANSFERASE 15 U/L (12-78); ALBUMIN 3.2 G/DL (3.4-5.0); ALBUMIN/GLOBULIN RATIO 0.9 (1.0-2.7); ALKALINE PHOSPHATASE 49 U/L (46-116); ANION GAP 10 mmol/L (5-15); ASPARTATE AMINO TRANSFERASE 11 U/L (15-37); BILIRUBIN,TOTAL 0.3 MG/DL (0.2-1.0); BLOOD UREA NITROGEN 7 mg/dL (7-18); CALCIUM 8.3 MG/DL (8.5-10.1); CARBON DIOXIDE 24 MMOL/L (21-32); CHLORIDE 106 MMOL/L (98-107); CREATININE 0.8 MG/DL (0.55-1.30); POTASSIUM 3.8 MMOL/L (3.5-5.1); SODIUM 140 MMOL/L (136-145)
[2017-11-21 16:00] VITALS: BP 116/68
--- NOTE | 2017-11-21 17:27 | Cardiology Progress Note ---
Assessment/Plan Assessment/Plan 1. Sinus tachycardia, likely related to pain and/or volume or anemia. 2. Status post gynecological surgery endometriosis and appendectomy. lab are fine except mild hypomagnesemia bpa re fien heart rate has improved ekg nsr no orthostatic sx has walked several times nto problem will dc home if ok with dr garza after mg administration fu with dr garza fu with nh message left to d/w dr garza Subjective Cardiovascular: Denies: chest pain, irregular heart rate, lightheadedness, palpitations Respiratory: Denies: shortness of breath, SOB with excertion Gastrointestinal/Abdominal: Denies: abdomen distended, abdominal pain Genitourinary: Denies: burning Objective Last 24 Hour Vital Signs Date Time Temp Pulse Resp B/P (MAP) Pulse Ox O2 Delivery O2 Flow Rate FiO2 11/21/17 16:00 85 11/21/17 16:00 97.3 88 18 116/68 99 Room Air 97.3 11/21/17 12:50 97.3 11/21/17 12:00 92 11/21/17 08:00 84 11/21/17 08:00 97.9 80 20 102/57 97 Room Air 97.9 11/21/17 04:10 106 11/21/17 04:05 89 11/21/17 04:00 91 11/21/17 04:00 86 11/21/17 04:00 97.0 86 18 113/54 95 Room Air 97.0 11/21/17 00:00 90 11/21/17 00:00 98.2 99 19 119/66 95 Room Air 98.2 11/20/17 20:00 99.1 109 18 121/56 94 Room Air 99.1 General Appearance: no apparent distress, alert Neck: no JVD Cardiovascular: normal rate, regular rhythm Respiratory/Chest: chest wall non-tender, lungs clear Abdomen: normal bowel sounds, non tender, soft Extremities: non-tender, no swelling Intake and Output 11/20/17 11/21/17 19:00 07:00 Intake Total 2303 ml 1498 ml Output Total 50 ml 1 ml Balance 2253 ml 1497 ml Intake Oral 150 ml 360 ml IV Total 2153 ml 1138 ml Output Urine Total 50 ml 1 ml # Voids 2 # Bowel Movements 5 Laboratory Tests Test 11/20/17 17:50 11/21/17 07:25 White Blood Count 8.1 K/UL (4.8-10.8) 10.6 K/UL (4.8-10.8) Red Blood Count 3.98 M/UL (4.20-5.40) L 3.77 M/UL (4.20-5.40) L Hemoglobin 12.2 G/DL (12.0-16.0) 11.7 G/DL (12.0-16.0) L Hematocrit 35.4 % (37.0-47.0) L 34.2 % (37.0-47.0) L Mean Corpuscular Volume 89 FL (80-99) 91 FL (80-99) Mean Corpuscular Hemoglobin 30.8 PG (27.0-31.0) 31.2 PG (27.0-31.0) H Mean Corpuscular Hemoglobin Concent 34.5 G/DL (32.0-36.0) 34.4 G/DL (32.0-36.0) Red Cell Distribution Width 10.6 % (11.6-14.8) L 11.0 % (11.6-14.8) L Platelet Count 238 K/UL (150-450) 230 K/UL (150-450) Mean Platelet Volume 8.2 FL (6.5-10.1) 8.9 FL (6.5-10.1) Neutrophils (%) (Auto) 93.5 % (45.0-75.0) H 79.2 % (45.0-75.0) H Lymphocytes (%) (Auto) 5.2 % (20.0-45.0) L 12.1 % (20.0-45.0) L Monocytes (%) (Auto) 1.2 % (1.0-10.0) 8.6 % (1.0-10.0) Eosinophils (%) (Auto) 0.0 % (0.0-3.0) 0.0 % (0.0-3.0) Basophils (%) (Auto) 0.2 % (0.0-2.0) 0.2 % (0.0-2.0) Sodium Level 136 MMOL/L (136-145) 140 MMOL/L (136-145) Potassium Level 4.1 MMOL/L (3.5-5.1) 3.8 MMOL/L (3.5-5.1) Chloride Level 105 MMOL/L (98-107) 106 MMOL/L (98-107) Carbon Dioxide Level 26 MMOL/L (21-32) 24 MMOL/L (21-32) Anion Gap 5 mmol/L (5-15) 10 mmol/L (5-15) Blood Urea Nitrogen 8 mg/dL (7-18) 7 mg/dL (7-18) Creatinine 0.8 MG/DL (0.55-1.30) 0.8 MG/DL (0.55-1.30) Estimat Glomerular Filtration Rate > 60 mL/min (>60) > 60 mL/min (>60) Glucose Level 163 MG/DL (74-106) H 118 MG/DL (74-106) H Calcium Level 8.2 MG/DL (8.5-10.1) L 8.3 MG/DL (8.5-10.1) L Total Bilirubin 0.4 MG/DL (0.2-1.0) 0.3 MG/DL (0.2-1.0) Aspartate Amino Transf (AST/SGOT) 12 U/L (15-37) L 11 U/L (15-37) L Alanine Aminotransferase (ALT/SGPT) 14 U/L (12-78) 15 U/L (12-78) Alkaline Phosphatase 50 U/L (46-116) 49 U/L (46-116) Total Protein 6.7 G/DL (6.4-8.2) 6.6 G/DL (6.4-8.2) Albumin 3.2 G/DL (3.4-5.0) L 3.2 G/DL (3.4-5.0) L Globulin 3.5 g/dL 3.4 g/dL Albumin/Globulin Ratio 0.9 (1.0-2.7) L 0.9 (1.0-2.7) L Thyroid Stimulating Hormone (TSH) 0.594 uiU/mL (0.358-3.740) Cortisol AM Sample Pending Magnesium Level 1.7 MG/DL (1.8-2.4) L JOHNATHON HUANG Nov 21, 2017 17:27
--- NOTE | 2017-11-21 17:28 | Discharge Instructions ---
Discharge Instructions Discharge Instructions Special Instructions fu with dr garza as intructedd by him fu with dr huang in 7-10 days For Congestive Heart Failure Reminder Report to your physician any weight gain of 5 pounds or more in one week. JOHNATHON HUANG Nov 21, 2017 17:28
[2017-11-21 20:00] VITALS: BP 124/84
[2017-11-21] MEDS ORDERED: D5 1/2NS 1000ml IV ONE (20:34)
--- NOTE | 2017-11-21 23:45 | Operative Note - Dictated ---
DATE OF OPERATION: 11/20/2017 PREOPERATIVE DIAGNOSES: 1. Severe pelvic pain predominantly on the left side. 2. History of pelvic adhesions. 3. History of pelvic endometriosis. POSTOPERATIVE DIAGNOSES: 1. Pelvic endometriosis. 2. Adhesions in the area of the appendix. PROCEDURE PERFORMED: Video laser pelviscopy with appendectomy, review laser pelviscopy with vaporization of left pelvic endometriosis and posterior cul-de-sac endometriosis and video laser pelviscopy with enterolysis. SURGEON: Jeet Shin M.D. FREELANCE WRITER: Silvia Beltre M.D. PROCEDURE IN DETAIL: After all the appropriate consents were signed, the patient was brought to the operating room and placed on the table in supine position. General endotracheal anesthesia was induced without complication. The patient was then placed in a dorsal lithotomy position. Perineum, vagina and abdomen were prepped and draped in usual fashion for the procedure. The patient was examined under anesthesia. The uterus appeared to be fully mobile. Cervix was identified and the cervical dilation was undertaken. The cervix was entered with the video hysteroscope. Uterine cavity was visualized and was found to be within normal limits without submucosal fibroid or endometrial polyps. The procedure then continued with placement of uterine manipulator and the procedure then continued in its abdominal portion where an umbilical incision was made. Veress needle was advanced. The abdomen was insufflated to 15 mmHg. A 10 mm trocar was placed in the umbilicus followed by two additional trocars in the midline in the left lower quadrant. The procedure then continued with video with a CO2 laser attached. The patient's pelvis was examined. The tubes and ovaries appeared to be within normal limits bilaterally. On the left pelvic sidewall, there was some area of white scar-down endometriosis, which was overlying the area of the ureter. Both ureters on the left and right were visualized and were found to be intact. The posterior cul-de-sac also contained area of scar-down endometriosis with some dark discoloration with that endometriosis. At this time, the CO2 laser was used to vaporize endometriosis after the area was hydrodissected with vasopressin and saline solution. When vaporization was completed, ureter on the left side was well visualized and was found to be intact and mobile. The same procedure was completed in the posterior cul-de-sac. One vaporization was fully completed, the attention was turned to the appendix on the right side. There were multiple adhesions to the appendix and the epiploica of the appendix. The appendix was elevated and gradually the adhesions were removed using traction countertraction technique and sharp dissection. The appendix was finally fully visualized and at this time, periappendiceal fluid was removed to expose the appendix itself. At this time, Endo-loop suture of 0 Vicryl was placed at the proximal end of the appendix. This was completed twice to occlude the appendiceal stump. An additional scattered third Endo-loop was placed on the appendix to cut off the spillage. The area between the sutures was transected and the appendix was removed through the 10 mm port. At this time, the pelvis was thoroughly irrigated, all the areas were fully hemostatic and the instruments were removed one after another under direct visualization with the laparoscope. Incisions were closed with 0 Vicryl suture at the fascia layer. Steri-Strips and benzoin were used to close the skin layer. The patient was then placed in the supine position and awakened from general anesthesia. She tolerated the procedure very well. Jeet Shin M.D. DR: THOMAS JOB#: [id number] CC: NETO
--- NOTE | 2017-11-24 19:16 | Cardiology Report ---
APPROVED REPORT EXAM: Two-dimensional and M-mode echocardiogram with Doppler and color Doppler. INDICATION Tachycardia M-Mode DIMENSIONS IVSd1.1 (0.7-1.1cm)Left Atrium (MM)2.7 (1.6-4.0cm) LVDd3.3 (3.5-5.6cm)Aortic Root2.7 (2.0-3.7cm) PWd1.2 (0.7-1.1cm)Aortic Cusp Exc.2.0 (1.5-2.0cm) LVDs1.7 (2.5-4.0cm) PWs1.8 cm Normal left ventricular chamber size, hyperdynamic systolic function and wall motion. Left ventricular ejection fraction estimated to be 75 %. No evidence of left ventricular hypertrophy. No evidence of pericardial effusion. Possible large posterior effusion. All other cardiac chamber sizes are within normal limits. Normal appearing aortic, mitral, pulmonic and tricuspid valves. Mild mitral annulus and aortic root calcification. IVC at normal size with physiologic collapse. A color flow and spectral Doppler study was performed and revealed: Trace aortic regurgitation. Trace to mild mitral regurgitation. Mitral inflow indicates normal left ventricular diastolic function. Trace tricuspid regurgitation. Tricuspid systolic velocities suggests peak right ventricular systolic pressure of 22 mmHg. Trace pulmonic regurgitation present.
--- NOTE | 2017-11-24 19:29 | Cardiology Report ---
APPROVED REPORT EKG Measurement Heart [id number] Normal sinus rhythm Normal ECG
--- NOTE | 2017-11-24 19:31 | Cardiology Report ---
APPROVED REPORT EKG Measurement Heart [id number] Sinus tachycardia Otherwise normal ECG
--- NOTE | 2017-11-28 08:56 | Diagnostic Imaging Report ---
APPROVED REPORT CPT Code: 88618 Present Symptoms Comments: Tachypnea BILATERAL: Imaging reveals a patent deep venous system bilaterally. There is no evidence of thrombus within the femoral, popliteal or tibial segments. The greater saphenous veins are also within normal limits. Doppler indicates normal spontaneous flow within these segments.
== END 2017-11-21 20:35 | disposition home or self-care (01) ==
LOC: SUR 06:26 → 3E 14:50 → 2E 15:05
DX: N80.3 Endometriosis of pelvic peritoneum (principal); K38.8 Other specified diseases of appendix; R00.0 Tachycardia, unspecified; Z98.82 Breast implant status; E83.42 Hypomagnesemia; F32.9 Major depressive disorder, single episode, unspecified; F41.9 Anxiety disorder, unspecified
CPT/HCPCS: 36415; 44970; 58662; 80053; 81025; 82533; 83735; 84100; 84443; 85007; 85025; 93005; 93306; 93970; 96360; 96361; G0378; J0694; J1100; J1170; J1885; J2250; J2405; J2704; J2795; J3010; J7120; Q9968; 94003; 94150

== ENCOUNTER 2019-01-29 06:20 | Day surgery (SDC) | payer BC ==
[~2019-01-29] VITALS: Ht 170.2 cm; Wt 76.2 kg
[2019-01-29] VITALS (15 sets, daily range): BP systolic 99–133; BP diastolic 49–89
[~2019-01-29 06:20] MED LIST changes: +VENLAFAXINE HCL25 MG ORAL
[2019-01-29] MEDS ORDERED: LINZESS290 MCG PO (06:54)
[2019-01-29] MEDS ORDERED: cefOXitin Sod 2 GM in D5W 110 ML IVPB ONE (07:00)
[2019-01-29] MEDS ORDERED: cefOXitin 2gm Inj ONE (07:09)
[2019-01-29] MEDS ORDERED: Ropivacaine 5mg/ml Vial 30ml INJ ONE ×2 (07:09→07:54)
[2019-01-29] MEDS ORDERED: fentaNYL 100 mcg/2 mL IV ONE (07:10)
[2019-01-29] MEDS ORDERED: Midazolam 2mg/2ml Inj ONE (07:10)
[2019-01-29] MEDS ORDERED: Zemuron 50mg/5ml Inj IV ONE (07:24)
[2019-01-29] MEDS ORDERED: LR 1000ml ONE (07:30)
[2019-01-29] MEDS ORDERED: Sterile Water Irrig 1000ml IRRIG ONE (07:30)
[2019-01-29] MEDS ORDERED: NS Irrig 1000ml ONE (07:30)
[2019-01-29] MEDS ORDERED: ProvayBlue 5mg/ml 10ml amp INJ ONE (07:45)
--- NOTE | 2019-01-29 08:04 | Pre-Procedure Note/Attestation ---
Pre-Procedure Note/Attestation Complete Prior to Procedure Planned Procedure: bilateral Procedure Narrative: Video Laser Pelviscopy, Laser treatment of endometriosis Indications for Procedure Pre-Operative Diagnosis: Severe, Chronic Pelvic Pain not responding to hormonal treatment History of endometriosis Attestation I attest that I discussed the nature of the procedure; its benefits; risks and complications; and alternatives (and the risks and benefits of such alternatives ), prior to the procedure, with the patient (or the patient's legal compliance representative). I attest that, if there was a reasonable possibility of needing a blood transfusion, the patient (or the patient's legal compliance representative) was given the [facility] standardized written summary, pursuant to the [employer] Blood Safety Act ([place] Health and Safety Code # 1645, as amended). I attest that I re-evaluated the patient just prior to the surgery and that there has been no change in the patient's H&P, except as documented below:NONE Jeet Shin MD January 29, 2019 08:04
--- NOTE | 2019-01-29 08:09 | Brief Operative Note ---
Immediate Post Operative Note Operative Note Pre-op Diagnosis: Severe, Chronic Pelvic Pain not responding to hormonal treatment History of endometriosis Procedure: VLP, Vaporization of Endometriosis Post-op Diagnosis: same as pre-op plus Surgeon: Jeet Shin MD Bridge Worker Apprentice: Silvia Beltre MD Anesthesiologist: Samantha Barrientos Anesthesia: general Specimen: yes Complications: none Condition: stable Fluids: LRD5 @ 125 cc/hr Estimated Blood Loss: minimal Drains: none Implant(s) used?: No Jeet Shin MD January 29, 2019 08:09
[2019-01-29] MEDS ORDERED: NS Irrig 1000ml IRRIG ONE (08:29)
[2019-01-29] MEDS ORDERED: Lidocaine 1% MPF 10mg/ml 5ml ONE (08:34)
[2019-01-29] MEDS ORDERED: Propofol 200mg/20ml IV ONE (08:34)
[2019-01-29] MEDS ORDERED: Esmolol 100mg/10ml Inj ONE (08:34)
[2019-01-29] MEDS ORDERED: Dexamethasone 4mg/ml vial ONE (08:34)
[2019-01-29] MEDS ORDERED: Ketorolac 30mg Inj ONE ×2 (08:34→11:04)
[2019-01-29] MEDS ORDERED: Neostigmine 1mg/ml 10ml Inj ONE (08:34)
[2019-01-29] MEDS ORDERED: Glycopyrrolate 0.2mg/ml 1ml Vial ONE (08:34)
--- NOTE | 2019-01-29 08:58 | Anethesia Preoperative Eval ---
Anesthesia Pre-op PMH/ROS General Date of Evaluation: January 29, 2019 Time of Evaluation: 08:00 Anesthesiologist: triny ASA Score: ASA 2 Mallampati Score Class I : Soft palate, uvula, fauces, pillars visible Class II: Soft palate, uvula, fauces visible Class III: Soft palate, base of uvula visible Class IV: Only hard plate visible Mallampati Classification: Class I Surgeon: greg Diagnosis: Endometriosis Surgical Procedure: CO2 laser pelvicscopy; d&c Anesthesia History: none Family History: no anesthesia problems Allergies: Coded Allergies: No Known Allergies (Unverified , 10/16/16) Medications: see eMAR Patient NPO?: Yes NPO Date: January 29, 2019 NPO Time: 00:01 Past Medical History Cardiovascular: Reports: arrhythmia; Denies: HTN, CAD, [place], valve dz, other Pulmonary: Denies: asthma, COPD, RAFIQ, other Gastrointestinal/Genitourinary: Denies: GERD, CRI, ESRD, other Neurologic/Psychiatric: Denies: dementia, CVA, depression/anxiety, TIA, other HEENT: Denies: cataract (L), cataract (R), glaucoma, [place]-BANN[place] (L), [place]ANN[place] (R), other Hematology/Immune: Reports: anemia Musculoskeletal/Integumentary: Denies: OA, RA, DJD, DDD, edema, other PSxH Narrative: d &c ; co2 laser 11/16 Anesthesia Pre-op Phys. Exam Physician Exam Last Vital Signs Date Time Temp Pulse Resp B/P (MAP) Pulse Ox O2 Delivery O2 Flow Rate FiO2 01/29/19 07:04 Room Air 01/29/19 06:54 98.2 98 18 133/89 99 Constitutional: NAD Neurologic: CN 2-12 intact Cardiovascular: RRR Respiratory: CTA Gastrointestinal: S/NT/ND Airway Exam Mallampati Classification 2 Mallampati Score: Class II MO: full Neck: normal TMD: 3fb ROM: full Dentures: no upper, no lower Anesthesia Pre-op A/P Labs Urine Test Test 01/29/19 06:30 Urine HCG, Qualitative Negative (NEGATIVE) Studies Pre-op Studies: EKG - sr Risk Assessment & Plan Assessment: hx of ST with over night admission; ruled out by cardiology Plan: General Status Change Before Surgery: No Pre-Antibiotics Drug: cefoxitin Given Within 1 Hr of Incision: Yes Time Given: 08:15 Lauren Bhatti CRNA January 29, 2019 08:58
[2019-01-29] MEDS ORDERED: fentaNYL 100 mcg/2 mL IV PRN (09:00)
[2019-01-29] MEDS ORDERED: Acetaminophen (Non formulary) 100 ML IV ONE (09:00)
[2019-01-29] MEDS ORDERED: HYDROmorphone 1mg/ml Carpuject SUBQ PRN (09:45)
[2019-01-29] MEDS ORDERED: HYDROcodone/Acetamin 5/325 tab ORAL PRN (09:45)
[2019-01-29] MEDS ORDERED: D5 1/2NS 1,000 ML IV SCH (09:45)
--- NOTE | 2019-01-29 09:54 | Immediate Post-Op Evaluation ---
Immediate Post-Op Evalulation Immediate Post-Op Evalulation Procedure: Co2 Pelvicscopy Date of Evaluation: January 29, 2019 Time of Evaluation: 09:53 IV Fluids: 1300 Urinary Output: 150 Blood Pressure Systolic: 100 Blood Pressure Diastolic: 50 Pulse Rate: 105 Respiratory Rate: 14 O2 Sat by Pulse Oximetry: 98 Temperature (Fahrenheit): 97.4 Nausea: No Vomiting: No Complications none Patient Status: awake, reacts, patent Hydration Status: adequate Drug: cefoxitin Given Within 1 Hr of Incision: Yes Time Given: 08:15 Lauren Bhatti CRNA January 29, 2019 09:54
[2019-01-29] MEDS ORDERED: Hydromorphone 0.5mg/0.5ml inj IVP PRN (10:00)
[2019-01-29] MEDS ORDERED: LORazepam Inj 2mg/ml 1ml IV PRN (10:00)
[2019-01-29] MEDS: Hydromorphone 0.5mg/0.5ml inj IVP PRN ×3 (10:01→10:38)
[2019-01-29] MEDS ORDERED: Ketorolac 30mg Inj IV SCH (11:15)
--- NOTE | 2019-01-29 13:25 | 48 Hour Post Anesthesia Eval ---
Post Anesthesia Evaluation Procedure: Co2 Pelvicscopy Date of Evaluation: January 29, 2019 Time of Evaluation: 13:24 Blood Pressure Systolic: 122 0: 74 Pulse Rate: 110 Respiratory Rate: 14 O2 Sat by Pulse Oximetry: 98 Airway: patent Nausea: No Vomiting: No Hydration Status: adequate Mental Status/LOC: patient returned to baseline Follow-up Care/Observations: stable Post-Anesthesia Complications: none Follow-up care needed: N/A Lauren Bhatti CRNA January 29, 2019 13:24
--- NOTE | 2019-01-29 17:15 | Operative Note - Dictated ---
DATE OF OPERATION: 01/29/2019 PREOPERATIVE DIAGNOSES: Severe pelvic pain unresponsive to hormonal therapy, history of endometriosis. POSTOPERATIVE DIAGNOSES: Severe pelvic pain unresponsive to hormonal therapy, history of endometriosis plus multiple areas of white endometriosis lesions. PROCEDURE PERFORMED: Video laser pelviscopy with vaporization of pelvic endometriosis and abdominal endometriosis and bladder endometriosis, video hysteroscopy. SURGEON: Jeet Shin M.D. SURFACE SUPERVISOR: Silvia Beltre M.D. ANESTHESIA: Lauren Bhatti M.D. PROCEDURE IN DETAIL: After appropriate consent was signed, the patient was brought to the operating room and placed in the supine position. General endotracheal anesthesia was induced without complication. The patient was then placed in a dorsal lithotomy position. Perineum, vagina, and abdomen were prepped in the usual fashion for the procedure. The vaginal portion of the procedure began first where cervix was dilated to approximately 7 mm. The video hysteroscope was advanced and cavity was well visualized. Both tubes were within normal limits, appeared to be patent. There did not appear to be submucosal fibroids or endometrial polyps. At this time, the uterine manipulator was placed and the balloon inflated. The procedure then continued at its abdominal portion where an umbilical incision was made. Veress needle was placed and the abdomen was insufflated to 15 mmHg. Once this was completed, a sharp trocar was placed through the umbilicus and this was followed by the laparoscope. Fluoroscopy revealed endometrial cavity. There did not appear to be any adhesions in the endometrium. However, there were multiple areas of white lesions throughout the pelvis. Some of the lesions were on the bladder and a large number of lesions in both left and right flank area above the umbilicus. There were also lesions in the posterior cul-de-sac, especially along the right uterosacral ligament. At this time, CO2 laser and bipolar cautery were utilized to vaporize all the lesions that could be visualized. Irrigation was applied to assure that all the lesions and peritoneum with lesions were fully ablated and vaporized. At this time, the patient was once again visualized and both ureters were identified. At this time, instruments were removed one after another from secondary ports and primary port containing the laparoscope as well. The laparoscope was removed last after the trocar was removed from the primary report. Incisions were closed using 0 Vicryl at the fascia layer and Steri-Strips and benzoin at skin layer. The patient was placed in the supine position and awakened from general anesthesia. She tolerated the procedure very well. Jeet Shin M.D. DR: CILFFORD JOB#: [id number] CC:
== END 2019-01-29 14:05 | disposition home or self-care (01) ==
LOC: SUR 06:20
DX: R10.2 Pelvic and perineal pain (principal); Z79.890 Hormone replacement therapy; N32.9 Bladder disorder, unspecified
CPT/HCPCS: 58555; 58662; 81025; J0694; J1100; J1170; J1885; J2250; J2405; J2704; J2795; J3010; 94003; 94150; J2710